=== PATIENT | female | born 1975 | race American Indian/Alaskan Native ===

== ENCOUNTER 2017-10-25 22:13 | Emergency (ER) | payer OTHER ==
[2017-10-25 23:39] VITALS: BP 123/83
--- NOTE | 2017-10-26 00:15 | Emergency Department Report ---
HPI - General Chief Complaint: Urogenital-Female Time Seen by Provider: 10/26/17 00:02 - HPI HPI: 42-year-old female presents to the emergency department with a complaint of having a tampon stuck within the vagina. The patient is on her menstrual cycle and is using a tampon as usual but when she went to remove it the string came off. The patient's even tried to get out manually but was unsuccessful. She denies any fever, vaginal discharge, dysuria. She denies any past medical history. ED Past Medical Hx - Past Medical History Previous Medical History?: No - Surgical History Past Surgical History?: No - Social History Smoking Status: Never Smoker Substance Use Type: None - Medications Home Medications: Home Medications Medication Instructions Recorded Confirmed Last Taken Type Sulfamethoxazole/Trimethoprim 1 each PO Q12H #14 tablet 06/12/14 Unknown Rx [Bactrim Ds] traMADol [Ultram 50 MG tab] 50 mg PO Q6HR PRN #16 tablet 06/12/14 Unknown Rx ED Review of Systems ROS: Stated complaint: TAMPON STUCK IN VAGINA Other details as noted in HPI Comment: All other systems reviewed and negative Constitutional: denies: chills, fever Eyes: denies: eye pain, eye discharge, vision change ENT: denies: ear pain, throat pain Respiratory: denies: cough, shortness of breath, wheezing Cardiovascular: denies: chest pain, palpitations Gastrointestinal: denies: nausea, vomiting Genitourinary: denies: dysuria, discharge Musculoskeletal: denies: back pain, joint swelling, arthralgia Skin: denies: rash, lesions Neurological: denies: headache, weakness, paresthesias Physical Exam - Physical Exam Vital Signs: Vital Signs 10/25/17 23:33 Temperature 98.9 F Pulse Rate 73 Respiratory 18 Rate Blood Pressure 123/83 O2 Sat by Pulse 98 Oximetry Physical Exam: GENERAL: The patient is well-developed well-nourished. HENT: Normocephalic. Atraumatic. Patient has moist mucous membranes. EYES: Extraocular motions are intact. NECK: Supple. Trachea is midline. ABDOMEN: Abdomen is soft, nontender. There is no abdominal distention. SKIN: Skin is warm and dry. NEURO: The patient is awake, alert, and oriented. The patient is cooperative. The patient has no focal neurologic deficits. The patient has normal speech. MUSCULOSKELETAL: There is no tenderness or deformity. There is no limitation range of motion. There is no evidence of acute injury. : There is a moderate amount of red blood seen in the vaginal vault. There is a cotton appearing foreign body consistent with the retained tampon. ED Course Vital Signs 10/25/17 23:33 Temperature 98.9 F Pulse Rate 73 Respiratory 18 Rate Blood Pressure 123/83 O2 Sat by Pulse 98 Oximetry ED Medical Decision Making - Medical Decision Making The patient came in because she was unable to remove her tampon as the string came off. She denies any pelvic pain, fever, vaginal discharge. It is only been a few hours past the time of removing the tampon and therefore at this point patient appears low suspicion for a bacterial infection or toxic shock syndrome. The tampon was removed using forceps and there was no complication with this pelvic examination. The patient will follow up with her [employer] and/ or primary care physician but understands to return to the emergency department with any development of the above-mentioned symptoms or with any acute distress. Critical Care Time: No Critical care attestation.: If time is entered above; I have spent that time in minutes in the direct care of this critically ill patient, excluding procedure time. ED Disposition Clinical Impression: Retained tampon Qualifiers: Encounter type: initial encounter Qualified Code(s): T19.2XXA - Foreign body in vulva and vagina, initial encounter Foreign body in vagina Qualifiers: Encounter type: initial encounter Qualified Code(s): T19.2XXA - Foreign body in vulva and vagina, initial encounter Disposition: - TO HOME OR SELFCARE Is pt being admited?: No Condition: Stable Instructions: Vaginal Foreign Body (ED) Additional Instructions: Please follow-up with your primary care physician or [employer]. Return to the emergency department with any pelvic pain, fever or any acute distress. Referrals: Primary Care Physician, Your [Other] - as needed Time of Disposition: 00:15
== END 2017-10-26 00:40 | disposition home or self-care (01) ==
LOC: ED 22:13
DX: T19.2XXA Foreign body in vulva and vagina, initial encounter (principal); W45.8XXA Other foreign body or object entering through skin, initial encounter; Y93.89 Activity, other specified; Y99.8 Other external cause status; Y92.89 Other specified places as the place of occurrence of the external cause
CPT/HCPCS: 99283

== ENCOUNTER 2017-11-11 20:47 | Emergency (ER) | payer OTHER ==
[2017-11-11 20:57] VITALS: BP 140/77
--- NOTE | 2017-11-12 02:13 | Emergency Department Report ---
- General Chief complaint: Skin/Abscess/Foreign Body Stated complaint: ABCSESS ON BUTTOCKS Time Seen by Provider: 11/12/17 01:41 Source: patient Mode of arrival: Ambulatory Limitations: No Limitations - History of Present Illness Initial comments: 42-year-old female past medical history none presents with complaint of abscess to left buttock. Patient is awake alert and oriented 3. States it is firm and painful. Hurts to take a seat. Denies fevers chills nausea vomiting or difficulty defecating. Accompanied by spouse at bedside. MD complaint: abscess/boil Onset/Timin -: days(s) Location: buttocks Severity: moderate Severity scale (0 -10): 5 Quality: aching Consistency: constant Improves with: none Worsens with: none Treatments Prior to Arrival: none - Related Data Previous Rx's Medication Instructions Recorded Last Taken Type Sulfamethoxazole/Trimethoprim 1 each PO Q12H #14 tablet 06/12/14 Unknown Rx [Bactrim Ds] traMADol [Ultram 50 MG tab] 50 mg PO Q6HR PRN #16 tablet 06/12/14 Unknown Rx Acetaminophen/Codeine [Tylenol 1 tab PO Q6H PRN #8 tab 11/12/17 Unknown Rx /Codeine # 3 tab] Ibuprofen [Motrin] 800 mg PO Q8HR PRN #20 tablet 11/12/17 Unknown Rx Sulfamethoxazole/Trimethoprim 1 each PO BID #14 tablet 11/12/17 Unknown Rx [Bactrim DS TAB] Allergies Allergy/AdvReac Type Severity Reaction Status Date / Time No Known Allergies Allergy Verified 11/11/17 20:51 Abscess Boil HPI - HPI Chief Complaint: Skin/Abscess/Foreign Body Stated Complaint: ABCSESS ON BUTTOCKS Time Seen by Provider: 11/12/17 01:41 Home Medications: Previous Rx's Medication Instructions Recorded Last Taken Type Sulfamethoxazole/Trimethoprim 1 each PO Q12H #14 tablet 06/12/14 Unknown Rx [Bactrim Ds] traMADol [Ultram 50 MG tab] 50 mg PO Q6HR PRN #16 tablet 06/12/14 Unknown Rx Acetaminophen/Codeine [Tylenol 1 tab PO Q6H PRN #8 tab 11/12/17 Unknown Rx /Codeine # 3 tab] Ibuprofen [Motrin] 800 mg PO Q8HR PRN #20 tablet 11/12/17 Unknown Rx Sulfamethoxazole/Trimethoprim 1 each PO BID #14 tablet 11/12/17 Unknown Rx [Bactrim DS TAB] Allergies/Adverse Reactions: Allergies Allergy/AdvReac Type Severity Reaction Status Date / Time No Known Allergies Allergy Verified 11/11/17 20:51 ED Review of Systems ROS: Stated complaint: ABCSESS ON BUTTOCKS Other details as noted in HPI Constitutional: denies: chills, fever Eyes: denies: eye pain, eye discharge, vision change ENT: denies: ear pain, throat pain Respiratory: denies: cough, shortness of breath, wheezing Cardiovascular: denies: chest pain, palpitations Endocrine: no symptoms reported Gastrointestinal: denies: abdominal pain, nausea, diarrhea Genitourinary: denies: urgency, dysuria, discharge Musculoskeletal: denies: back pain, joint swelling, arthralgia Skin: as per HPI. denies: rash, lesions Neurological: denies: headache, weakness, paresthesias Psychiatric: denies: anxiety, depression Hematological/Lymphatic: denies: easy bleeding, easy bruising ED Past Medical Hx - Past Medical History Previous Medical History?: No - Surgical History Past Surgical History?: No - Social History Smoking Status: Never Smoker Substance Use Type: None - Medications Home Medications: Home Medications Medication Instructions Recorded Confirmed Last Taken Type Sulfamethoxazole/Trimethoprim 1 each PO Q12H #14 tablet 06/12/14 Unknown Rx [Bactrim Ds] traMADol [Ultram 50 MG tab] 50 mg PO Q6HR PRN #16 tablet 06/12/14 Unknown Rx Acetaminophen/Codeine [Tylenol 1 tab PO Q6H PRN #8 tab 11/12/17 Unknown Rx /Codeine # 3 tab] Ibuprofen [Motrin] 800 mg PO Q8HR PRN #20 tablet 11/12/17 Unknown Rx Sulfamethoxazole/Trimethoprim 1 each PO BID #14 tablet 11/12/17 Unknown Rx [Bactrim DS TAB] ED Physical Exam - General Limitations: No Limitations General appearance: alert, in no apparent distress - Head Head exam: Present: atraumatic, normocephalic - Eye Eye exam: Present: normal appearance, PERRL, EOMI - ENT ENT exam: Present: mucous membranes moist - Neck Neck exam: Present: normal inspection - Respiratory Respiratory exam: Present: normal lung sounds bilaterally. Absent: respiratory distress - Cardiovascular Cardiovascular Exam: Present: regular rate, normal rhythm. Absent: systolic murmur, diastolic murmur, rubs, gallop - GI/Abdominal GI/Abdominal exam: Present: soft, normal bowel sounds - Extremities Exam Extremities exam: Present: normal inspection - Back Exam Back exam: Present: normal inspection - Neurological Exam Neurological exam: Present: alert, oriented X3, CN II-XII intact, normal gait - Expanded Neurological Exam Expanded Patient oriented to: Present: person, place - Psychiatric Psychiatric exam: Present: normal affect, normal mood - Skin Skin exam: Present: warm, dry, intact, normal color. Absent: rash - Expanded Skin Exam Expanded Type of lesion: Present: abscess Description of rash: Present: size, tenderness 1 - abscess here ED Course Vital Signs 11/11/17 20:52 Temperature 98.8 F Pulse Rate 85 Respiratory 18 Rate Blood Pressure 140/77 O2 Sat by Pulse 99 Oximetry ED Medical Decision Making - Medical Decision Making A/P: left buttocks abscess 1- bactrim course bid 7 days 2- motrin prn 3- wound culture sent 4- I advise pt to remove her packing at home in 12-24 hours and to return for worsened symptoms Critical care attestation.: If time is entered above; I have spent that time in minutes in the direct care of this critically ill patient, excluding procedure time. ED Disposition Clinical Impression: Abscess, Encounter for incision and drainage procedure Disposition: TO HOME OR SELFCARE Is pt being admited?: No Does the pt Need Aspirin: No Condition: Stable Instructions: Abscess (ED), Abscess Incision and Drainage (ED), Cellulitis (ED) Prescriptions: Acetaminophen/Codeine [Tylenol /Codeine # 3 tab] 1 tab PO Q6H PRN #8 tab PRN Reason: Pain , Severe (7-10) Ibuprofen [Motrin] 800 mg PO Q8HR PRN #20 tablet PRN Reason: Pain , Severe (7-10) Sulfamethoxazole/Trimethoprim [Bactrim DS TAB] 1 each PO BID #14 tablet Referrals: [facility] [Provider Group] - 3-5 Days Forms: Accompanied Note, Work/School Release Form(ED) Time of Disposition: 02:17
[2017-11-12] MEDS ORDERED: MOTRIN PO ONE (02:18)
[2017-11-12] MEDS ORDERED: XYLOCAINE 2% INFILTRATI ONE (08:20)
== END 2017-11-12 02:29 | disposition home or self-care (01) ==
LOC: ED 20:47
DX: L02.31 Cutaneous abscess of buttock (principal)
CPT/HCPCS: 87116; 99283